=== PATIENT | male | born 1970 | race Hispanic/Latino ===

== ENCOUNTER 2017-11-16 10:14 | Emergency (ER) | payer SELFPAY ==
[2017-11-16] MEDS ORDERED: Ondansetron HCl/PF 4 MG/2 ML Vial ONE (10:27)
[2017-11-16] MEDS ORDERED: Adacel (T-DAP) 0.5 ML VIAL ONE (10:32)
[2017-11-16] MEDS ORDERED: Piperacillin/Tazobactam 3.375 GM VIAL ONE (10:33)
[2017-11-16] MEDS ORDERED: Sodium Chloride 0.9% 100 ML ONE (10:35)
[2017-11-16 10:38] LABS: #Basophils 0.2 thou/uL (0.0-0.2); #Eosinphils 0.2 thou/uL (0.0-0.7); #Lymphocytes 3.8 thou/uL (1.20-3.40); #Monocytes 1.1 thou/uL (0.11-0.59); #Neutrophils 6.5 thou/uL (1.40-6.50); %Basophils 1.6 % (0.0-1.0); %Eosinophils 1.4 % (0.0-10.0); %Lymphocytes 32.2 % (21.0-51.0); %Monocytes 9.1 % (0.0-10.0); %Neutrophils 55.7 % (42.0-75.0); Hemoglobin 16.3 g/dL (14.0-18.0); Mean Corpuscular HGB CONC 31.8 g/dL (32.0-36.0); Mean Corpuscular Hemoglobin 29.3 pg (27.0-31.0); Mean Corpuscular Volume 92.1 fL (78.0-98.0); Mean Platelet Volume 9.3 fL (7.4-10.4); Platelet Count 237 thou/uL (130-400); RBC Distribution Width 12.5 % (11.5-14.5); Red Blood Cell (RBC) Count 5.58 mill/uL (4.70-6.10); White Blood Cell (WBC) Count 11.7 thou/uL (4.8-10.8)
[2017-11-16] MEDS ORDERED: Sodium Chloride 0.45% 1,000 ML ONE (10:42)
[2017-11-16 10:44] LABS: INR-International Normal Ratio 0.9; PTT 24.4 SEC (22.9-36.1); Prothrombin Time 12.6 SEC (12.0-14.7)
[2017-11-16 10:50] LABS: ALT (SGPT) 21 U/L (8-55); AST (SGOT) 20 U/L (5-34); Albumin 4.2 g/dL (3.5-5.0); Alkaline Phosphatase 81 U/L (40-150); Anion Gap 14 mmol/L (10-20); BUN (Urea Nitrogen) 14 mg/dL (8.9-20.6); Bilirubin, Total 0.5 mg/dL (0.2-1.2); Calc. Creatinine Clearance 0 mL/min (70-130); Carbon Dioxide 21 mmol/L (22-29); Chloride 108 mmol/L (98-107); Estimated GFR-MDRD 76; Glucose 138 mg/dL (70-105); Potassium 3.7 mmol/L (3.5-5.1); Protein, Total 7.2 g/dL (6.0-8.3); Sodium 139 mmol/L (136-145)
--- NOTE | 2017-11-16 11:40 | RAD ---
RIGHT LOWER LEG 2 VIEWS: HISTORY: Right leg injury. FINDINGS: Very large and extensive soft tissue injury involves the anterior aspect of the lower leg at the leve l of the proximal tibial shaft. Smooth osseous defect of the anterior cortex involves approximately depth of the anterior apex. Tiny ossific fragments overlie the lacerated soft tissue fragments. No full-thickness fracture or metallic foreign bodies are apparent. POS: [facility]
== END 2017-11-16 10:48 | disposition short-term general hospital (02) ==
LOC: NAV ERS 10:14
DX: S81.811A Laceration without foreign body, right lower leg, initial encounter (principal); W31.2XXA Contact with powered woodworking and forming machines, initial encounter
CPT/HCPCS: 36415; 80053; 85025; 85610; 85730; 90471; 90715; 94760; 96374; 96375; J2270; J2405; J2543; J7050